=== PATIENT | female | born 1940 | race Caucasian/White ===

== ENCOUNTER → 2016-12-23 07:56 | Outpatient (CLI) | payer MEDICARE, OTHER ==
[2016-02-22 12:38] VITALS: BMI 23.0
[~2016-12-23 07:56] MED LIST: ALENDRONATE SOD70 MG PO; CALTRATE 600 M600 M1 PO; CARAFATE1 G PO; DETROL LA4 MG PO; HYDROCODONE-APA1 TAB PO; KLOR-CON8 MEQ PO; LIPITOR10 MG PO; LISINOPRIL5 MG PO; MOBIC7.5 MG PO; MULTIPLE VITAMI1 TA1 PO; NORVASC10 MG PO; OXYBUTYNIN CHLOR5 MG PO; PROZAC10 MG PO; SYNTHROID150 MCG PO; VITAMIN D31000 UNIT PO; ZOFRAN ODT4 MG/UDTAB PO
== END | disposition home or self-care (01) ==
LOC: D.CT 07:56
DX: R10.12 Left upper quadrant pain (principal); E80.6 Other disorders of bilirubin metabolism

== ENCOUNTER → 2016-12-29 10:51 | Outpatient (CLI) | payer MEDICARE, OTHER ==
[2016-02-22 12:38] VITALS: BMI 23.0
== END | disposition home or self-care (01) ==
LOC: D.RAD 10:45
DX: R07.9 Chest pain, unspecified (principal)

== ENCOUNTER → 2017-12-10 17:01 | Outpatient (CLI) | payer MEDICARE, OTHER ==
[2016-02-22 12:38] VITALS: BMI 23.0
== END | disposition home or self-care (01) ==
LOC: D.LABREF 17:01
DX: N39.0 Urinary tract infection, site not specified (principal)

== ENCOUNTER → 2017-12-14 08:18 | Outpatient (CLI) | payer MEDICARE, OTHER ==
[2016-02-22 12:38] VITALS: BMI 23.0
== END | disposition home or self-care (01) ==
LOC: D.CT 08:18
DX: K57.30 Diverticulosis of large intestine without perforation or abscess without bleeding (principal)

== ENCOUNTER → 2017-12-24 17:17 | Outpatient (CLI) | payer MEDICARE, OTHER ==
[2016-02-22 12:38] VITALS: BMI 23.0
== END | disposition home or self-care (01) ==
LOC: D.LABREF 17:17
DX: N39.0 Urinary tract infection, site not specified (principal)

== ENCOUNTER 2018-06-27 08:01 | Emergency (ER) | payer MEDICARE, OTHER ==
[~2018-06-27] VITALS: Ht 149.9 cm; Wt 50.0 kg
[2018-06-27 08:07] VITALS: Ht 149.9 cm; Wt 50.0 kg
[2018-06-27 10:11] VITALS: BP 125/63
== END 2018-06-27 10:06 | disposition home or self-care (01) ==
LOC: D.ER 08:01
DX: S06.0X9A Concussion with loss of consciousness of unspecified duration, initial encounter (principal); W01.0XXA Fall on same level from slipping, tripping and stumbling without subsequent striking against object, initial encounter; Y93.89 Activity, other specified; Y92.019 Unspecified place in single-family (private) house as the place of occurrence of the external cause; M54.5 Low back pain; I10 Essential (primary) hypertension; I45.10 Unspecified right bundle-branch block

== ENCOUNTER → 2018-09-01 18:43 | Outpatient (CLI) | payer MEDICARE, OTHER ==
[2018-06-27 08:07] VITALS: BMI 22.2
== END | disposition home or self-care (01) ==
LOC: D.LABREF 18:43
DX: D72.829 Elevated white blood cell count, unspecified (principal); R31.9 Hematuria, unspecified

== ENCOUNTER → 2019-02-03 13:14 | Outpatient (CLI) | payer MEDICARE, BC ==
[2018-06-27 08:07] VITALS: BMI 22.2
== END | disposition home or self-care (01) ==
LOC: D.MRI 13:14
PROVIDERS: ATTEND Family Medicine
DX: R26.89 Other abnormalities of gait and mobility (principal)

== ENCOUNTER → 2020-11-07 10:23 | Outpatient (CLI) | payer MEDICARE, BC ==
[2018-06-27 08:07] VITALS: BMI 22.2
== END | disposition home or self-care (01) ==
LOC: D.US 10:23
PROVIDERS: ATTEND Family Medicine
DX: R10.30 Lower abdominal pain, unspecified (principal)